=== PATIENT | female | born 1990 | race Caucasian/White ===

== ENCOUNTER 2021-01-24 21:52 | Emergency (ER) | payer OTHER ==
[~2021-01-24] VITALS: Ht 165.1 cm; Wt 63.5 kg
[2021-01-24 21:52] VITALS: BP 126/91
== END 2021-01-24 22:48 | disposition home or self-care (01) ==
LOC: ER 21:52
DX: F10.129 Alcohol abuse with intoxication, unspecified (principal); F41.9 Anxiety disorder, unspecified